=== PATIENT | female | born 1995 | race Caucasian/White ===

== ENCOUNTER 2022-09-28 09:48 | Outpatient (REF) | payer OTHER, SELFPAY ==
[2022-09-28 11:14] LABS: MANUAL DIFF FLAG NO
[2022-09-28 11:46] LABS: Basophils Percent Auto 0.9 % (0-2); Eosinophils Absolute Auto 0.5 X10*3/uL (0.0-0.4); Eosinophils Percent Auto 10.2 % (0-4); Hematocrit 36.9 % (37.0-47.0); Hemoglobin 11.3 g/dl (12.0-16.0); Imm Gran Abs Auto 0.01 X10*3/uL (0.00-0.03); Imm Gran Pct Auto 0.2 % (0.0-0.4); Lymphocytes Absolute Auto 1.9 X10*3/uL (1.2-4.9); Lymphocytes Percent Auto 40.6 % (20-40); Mean Corpuscular HGB Conc 30.6 g/dl (31.0-35.0); Mean Corpuscular Hemoglobin 24.8 pg (27.0-33.0); Mean Corpuscular Volume 80.9 fL (80.0-98.0); Mean Platelet Volume 11.1 fL (9.4-12.3); Monocytes Absolute Auto 0.3 X10*3/uL (0.1-1.2); Monocytes Percent Auto 7.4 % (2-11); Neutrophils Absolute Auto 1.9 x10*3/uL (2.0-8.3); Neutrophils Percent Auto 40.7 % (45-73); Platelet Count 350 X10*3/uL (160-400); Red Blood Count 4.56 X10*6/uL (4.20-5.50); Red Cell Distribution Width 15.2 % (11.0-16.0); White Blood Count 4.6 X10*3/uL (4.8-10.8)
[2022-09-28 13:18] LABS: Alanine Aminotransferase 12 U/L (0-31); Aspartate Amino Transferase 19 U/L (5-31); Blood Urea Nitrogen 10 mg/dL (9-16); Cholesterol 186 mg/dL; Estimated Glomerular Filt Rate > 60; Glucose Fasting 84 mg/dL (60-99); HDL Cholesterol 54 mg/dL; LDL Cholesterol Calculated 121 mg/dl; Triglycerides 59 mg/dL; Vitamin D 25-OH Total 15.5 ng/mL (>30)
[2022-09-28 13:25] LABS: Anion Gap 13 (12-20); Carbon Dioxide 28 mmol/L (22-29); Chloride 103 mmol/L (96-108); Potassium 4.3 mmol/L (3.3-5.1); Sodium 140 mmol/L (135-145)
== END 2022-09-28 09:49 | disposition home or self-care (01) ==
LOC: HO.HMGCLDS 09:48
PROVIDERS: PCP Internal Medicine; Visit Provider Internal Medicine
DX: Z00.01 Encounter for general adult medical examination with abnormal findings (principal); B00.1 Herpesviral vesicular dermatitis; F41.0 Panic disorder [episodic paroxysmal anxiety]
CPT/HCPCS: 36415; 80048; 80061; 82306; 84450; 84460; 85025

== ENCOUNTER → 2024-10-18 15:52 | Outpatient (REF) | payer OTHER, SELFPAY | LOC: HO.SL 15:52 | PROVIDERS: PCP Internal Medicine; Visit Provider Psychiatry & Neurology Neurology | DX: Z13.89 Encounter for screening for other disorder (principal) ==

== ENCOUNTER → 2024-10-23 20:50 | Outpatient (BNV) | payer OTHER, SELFPAY | PROVIDERS: PCP Internal Medicine; Visit Provider Psychiatry & Neurology Neurology | DX: G47.61 Periodic limb movement disorder (principal) | CPT/HCPCS: 95810 ==

== ENCOUNTER → 2024-10-23 21:00 | Outpatient (REF) | payer OTHER, SELFPAY | LOC: HO.SL 21:00 | PROVIDERS: PCP Internal Medicine; Visit Provider Nurse Practitioner Family | DX: G47.10 Hypersomnia, unspecified (principal); G47.61 Periodic limb movement disorder | CPT/HCPCS: 95810 ==

== ENCOUNTER 2024-11-08 14:12 | Outpatient (AMB) | payer OTHER, SELFPAY ==
--- NOTE | 2024-11-08 14:13 | A.OFFVIS_ITS ---
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 Allergy (Unknown, Uncoded 09/28/22 09:35) itchy mouth uncooked fruit Allergy (Unknown, Uncoded 09/28/22 09:35) itchy mouth walnuts Allergy (Unknown, Uncoded 09/28/22 09:35) itchy mouth Medication List - Last Reconciled 11/08/24 by Tressa Fisher PA-C acyclovir 5% 1 appl topical .5xday 10 days ascorbic acid (vitamin C) 100 mg PO DAILY MDD 100mg daily azithromycin 250 mg PO ONCE 10 days cholecalciferol (vitamin D3) 1,250 mcg PO QWEEK 3 months clindamycin phosphate 1% 1 appl topical BID 90 days ferrous fumarate 325 mg PO DAILY fluocinolone acetonide oil 0.01% 5 drps otic (ears) BID 14 days fluoxetine 40 mg (2 x 20 mg) PO DAILY 90 days gabapentin 100 mg PO BEDTIME MDD 100 mg PO at bedtime Do you need a note to return to daycare/school/sports/work: No HPI Comments Details: 29 year old female tele-health phone appointment was evaluated by PSG for PLMS. She complaints of trouble falling asleep, and staying asleep, she goes to sleep around midnight to 3am. She says she gets up at least 20 times during the night, and immediately goes back to sleep. She moves her legs constantly at night however doesn't notice it happens, then falls back asleep. She can hear everything that is going on when she is sleeping, and never falls asleep completely. Sometimes she gets up and goes to the bathroom. She has HOLLIE and takes fluoxetine. She denies headaches, snoring, or witnessed apneas. Denies Visual or Auditory Hallucinations, Nightmares, or abnormal sleep behaviors. She denies complaints of leg discomfort, numbness, tingling, creepy crawly sensations, or muscle spasms. She walks 1-2 hours a day daily and lives a very active lifestyle. [facility] Medical History Snoring Hypersomnia Vitamin D deficiency Microcytic hypochromic anemia History of COVID-19 Eczema of external ear Acne Panic anxiety syndrome Recurrent cold sores Surgical History No pertinent past surgical history Family History Brother Mental health disorder Mother HTN (hypertension) Asthma Social History Housing: House e-Cigarette/Vaping Use: Never Used service: No Current occupational status: employed Cognitive needs: No Hearing needs: No Vision needs: Yes Telehealth Telehealth Telehealth Platform: Telephone Location of provider rendering services: practice address Location of patient: address on file Patient Identification confirmed using: Name, : Yes Telehealth method: voice only Patient verbally consented to treatment: Yes Patient verbally consented to billing insurance company: Yes Patient informed of any privacy concerns related to visit: Yes Minutes spent on Phone/Video with Pt.: 15 Results Reviewed Results Reviewed: PS10/23/2024 RLS clinical diagnosis with PLMS Frequent Periodic Limb Movements associated with arousals were seen for a PLM index of 107/hr and- PLM Arousal index of 40/hour. No Evidence of Sleep Apnea. AHI was 0 and 02 Jarek was 94%. Labs Vit D - deficient / anemia Assessment & Plan Assessment & Plan (1) Periodic limb movements of sleep: Code(s): G47.61 - Periodic limb movement disorder Category: Medical Plan PLMS: Start Gabapentin 100mg PO at bedtime will titrate up to 200mg in 2 weeks and then up to 300mg next month 2024, as she is able to tolerate. Labs will check CBC/CMP/Ferritin /B12/ Vit D Will start Magnesium Oxide 400mg PO at bedtime and Ferrous Sulfate with Vitamin C 100mg daily. Medications: New gabapentin take one capsule daily at bedtime for PLMS. 100 mg PO BEDTIME 30 caps 3RF Primary Limb Movement Disorder MDD 100 mg PO at bedtime G47.61 - Periodic limb movement disorder ascorbic acid (vitamin C) Take one tablet daily with your Iron Supplement (Ferrous Sulfate 325mg PO) daily. 100 mg PO DAILY 30 tabs 3RF Primary Leg Movement Syndrome MDD 100mg daily G47.61 - Periodic limb movement disorder Refilled cholecalciferol (vitamin D3) 1,250 mcg PO QWEEK 3 months 13 caps 0RF ferrous fumarate 325 mg PO DAILY 90 tabs 1RF Coding Level of Care Code Tele Est Pt Level 3 (25457) Diagnoses Periodic limb movements of sleep G47.61 Time Spent (min) 15 Comment Evaluation of PLMS
[2024-11-08 14:15] VITALS: BMI 22.1
== END 2024-11-10 15:57 | disposition home or self-care (01) ==
PROVIDERS: PCP Internal Medicine; Visit Provider Physician Assistant Medical
DX: G47.61 Periodic limb movement disorder (principal)
CPT/HCPCS: 99213

== ENCOUNTER → 2024-11-08 14:12 | Outpatient (BNVA) | payer OTHER, SELFPAY | PROVIDERS: PCP Internal Medicine; Visit Provider Physician Assistant Medical ==

== ENCOUNTER 2025-06-11 12:03 | Outpatient (REF) | payer OTHER, SELFPAY ==
[2025-06-11 16:17] LABS: Hematocrit 40.0 % (37.0-47.0); Hemoglobin 13.0 g/dl (12.0-16.0); Mean Corpuscular HGB Conc 32.5 g/dl (31.0-35.0); Mean Corpuscular Hemoglobin 27.4 pg (27.0-33.0); Mean Corpuscular Volume 84.2 fL (80.0-98.0); NRBC Abs Auto 0.000 X10*3/uL (0.0-0.012); NRBC Pct Auto 0.0 /100WBC (0.0-0.2); Platelet Count 268 X10*3/uL (160-400); Red Blood Count 4.75 X10*6/uL (4.20-5.50); White Blood Count 4.9 X10*3/uL (4.8-10.8)
[2025-06-11 16:47] LABS: Alanine Aminotransferase 19 U/L (0-31); Albumin Level 4.7 g/dL (3.5-5.0); Alkaline Phosphatase 49 U/L (39-117); Anion Gap 11 (12-20); Aspartate Amino Transferase 28 U/L (5-31); Blood Urea Nitrogen 7 mg/dL (9-16); Calcium 9.4 mg/dL (8.4-10.2); Carbon Dioxide 26 mmol/L (22-29); Chloride 105 mmol/L (96-108); Cholesterol 171 mg/dL (<200); Estimated Glomerular Filt Rate > 60; HDL Cholesterol 55 mg/dL (>40); Potassium 4.3 mmol/L (3.3-5.1); Sodium 138 mmol/L (135-145); Total Protein 7.8 g/dL (6.5-8.0); Triglycerides 54 mg/dL (<150)
[2025-06-11 16:50] LABS: Ferritin 56 ng/mL (10-122)
[2025-06-11 17:03] LABS: Folate 6.6 ng/mL (> or = 4.0); Vitamin B12 392 pg/mL (200-900)
== END 2025-06-11 12:04 | disposition home or self-care (01) ==
LOC: HO.HMGCLDS 12:03
PROVIDERS: PCP Internal Medicine; Referring Provider Physician Assistant Medical; Visit Provider Internal Medicine
DX: Z00.01 Encounter for general adult medical examination with abnormal findings (principal); Z23 Encounter for immunization; F41.0 Panic disorder [episodic paroxysmal anxiety]; E55.9 Vitamin D deficiency, unspecified; D50.9 Iron deficiency anemia, unspecified; G47.61 Periodic limb movement disorder; L70.9 Acne, unspecified; Z79.899 Other long term (current) drug therapy; Z71.89 Other specified counseling; Z13.220 Encounter for screening for lipoid disorders; Z13.31 Encounter for screening for depression; Z13.39 Encounter for screening examination for other mental health and behavioral disorders
CPT/HCPCS: 36415; 80053; 80061; 82306; 82607; 82728; 82746; 85027; 90471; 90715; 96127; 99395

== ENCOUNTER 2025-06-11 12:03 | Outpatient (AMB) | payer OTHER, MEDICAID, SELFPAY ==
--- NOTE | 2025-06-11 12:14 | A.OFFPC_ITS ---
Vital Signs 06/11/25 12:15 Height 5 ft 3 in Weight 114 lb BMI 20.2 BP 98/64 Blood Pressure Location Rt brachial Position Sitting Respiration 15 Pulse 88 Pulse Source Pulse Oximeter Temp 98.5 F Temp Source Oral Pulse Oximetry (%) 97 Oxygen Delivery Method Room Air Intake Visit Reasons: PE Intake Note: Pt is here today for her PE: Is last menstrual period known: Yes Last menstrual period: 05/20/25 Allergies pollen Allergy (Unknown, Uncoded 06/11/25 12:30) seasonal some uncooked veg. Allergy (Unknown, Uncoded 06/11/25 12:30) itchy mouth uncooked fruit Allergy (Unknown, Uncoded 06/11/25 12:30) itchy mouth walnuts Allergy (Unknown, Uncoded 06/11/25 12:30) itchy mouth Medication List - Last Reconciled 06/11/25 by Sultana Cavanaugh MD clindamycin phosphate 1% 1 appl topical BID 90 days ferrous fumarate 325 mg PO DAILY fluoxetine 40 mg (2 x 20 mg) PO DAILY 90 days gabapentin 300 mg (3 x 100 mg) PO BEDTIME 3 months MDD 300mg Tobacco use date assessed: 06/11/25 Dental Screening Dental Screen Date: 06/11/25 Did you have a dental visit in the last 12 months?: No Did you have a dental problem in the last 6 months where you did not have access to dental care?: No Was dental information given to patient?: Patient has dentist [facility] Medical History Snoring Hypersomnia Vitamin D deficiency Microcytic hypochromic anemia History of COVID-19 Eczema of external ear Acne Panic anxiety syndrome Recurrent cold sores Surgical History No pertinent past surgical history Family History Brother Mental health disorder Mother HTN (hypertension) Asthma Social History Housing: House Patient Tobacco Use Status: Never used Tobacco e-Cigarette/Vaping Use: Never Used service: No Current occupational status: employed Cognitive needs: No Hearing needs: No Vision needs: Yes Female Reproductive History Menstrual Date of last menstrual period: 05/20/25 Questionnaire PHQ-9 Over the last 2 weeks, how often have you been bothered by any of the following problems? 1. Little interest or pleasure in doing things: not at all 2. Feeling down, depressed, or hopeless: not at all 3. Trouble falling or staying asleep, or sleeping too much: several days 4. Feeling tired or having little energy: not at all 5. Poor appetite or overeating: not at all 6. Feeling bad about yourself - or that you are a failure or have let yourself or your family down: not at all 7. Trouble concentrating on things, such as reading the newspaper or watching television: not at all 8. Moving or speaking so slowly that other people could have noticed. Or the opposite - being so fidgety or restless that you have been moving around a lot more than usual: not at all 9. Thoughts that you would be better off or of hurting yourself in some way: not at all Total score: 1 Depression Screening Interpretation: Negative Depression Screening Done: Yes 26488 - PHQ-9 Billing: Yes Source: Developed by Drs. Rangel Newberry, Chelsie Cortez, Curtis Candelaria and colleagues, with an educational stiven from [employer]. Thrive Questionnaire Date Thrive assessed: 06/11/25 I am a: Patient What is your living situation today?: I have a steady place to live Within the past 12 months, did the food you bought not last and you didn't have the money to get more?: Never true Within the past 12 months, did you worry whether your food would run out before you got money to buy more?: Never true Do you have trouble paying for medicines?: No Do you have trouble getting transportation to medical appointments?: No Do you have trouble paying your heating and electricity bill?: No Do you have trouble taking care of your child, family member or friend?: No Do you have trouble with day-to-day activities such as bathing, preparing meals, shopping, managing finances, etc.?: No Are you currently unemployed and looking for a job?: No Are you interested in more education?: No Please select the resources that you would like help with: None Currently or been in a relationship where the following occur: No concerns reported THRIVE Score: 0 AUDIT C Alcohol Use Questionnaire (AUDIT-C) 1. How often do you have a drink containing alcohol?: Never Total Score: 0 Score Reviewed/Action Taken: Yes HOLLIE-7 AMB Questionnaire HOLLIE-7 Date HOLLIE - 7 assessed: 06/11/25 Feeling nervous, anxious, or on edge: 0 = Not at all Not being able to stop or control worryin = Not at all Worrying too much about different things: 0 = Not at all Trouble relaxin = Not at all Being so restless that it is hard to sit still: 0 = Not at all Becoming easily annoyed or irritable: 0 = Not at all Feeling afraid as if something awful might happen: 0 = Not at all Total HOLLIE-7 score (0-4 normal; 5-9 mild; 10-14 moderate; 15-21 severe): 0 Source: Developed by Drs. Rangel Newberry, Chelsie Cortez, Curtis Candelaria and colleagues, with an educational stiven from [employer]. HOLLIE-7 Assessment Billing HOLLIE-7 Assessment Tool: HOLLIE-7 Assessment 85032 Physical exam (Primary Care) Vital Signs: Last Vital Signs Temp 98.5 F 06/11/25 12:15 Pulse 88 06/11/25 12:15 Resp 15 06/11/25 12:15 BP 98/64 06/11/25 12:15 Pulse Ox 97 06/11/25 12:15 Oxygen Delivery Method Room Air 06/11/25 12:15 BMI result Body Mass Index 20.2 Tobacco/Smoking Status: Tobacco use Status Tobacco use date assessed 06/11/25 06/11/25 12:18 Patient Tobacco Use Status Never used Tobacco 06/11/25 12:18 e-Cigarette/Vaping Use Never Used 06/11/25 12:18 PHQ-9: PHQ-9 Score PHQ-9: Total score 1 06/11/25 12:40 Depression Screening Interpretation: Negative Thrive Assessment: Date of Thrive Assessment Date Thrive assessed 06/11/25 06/11/25 12:18 Currently or been in a relationship where the following occur: No concerns reported Immunizations Boostrix Tdap 2.5 Lf unit-8 mcg-5 Lf/0.5 mL intramuscular syringe Performing Provider: Sultana Cavanaugh MD Performing Location: [facility] [place] [facility] Administered by: Hilario Osborne CMA on 06/11/25 12:47 Dose Route Admin Location Dispensed Lot Number Expiration Date NDC Machining Technician 0.5 mL IM Right Deltoid 0.5 mL [id number] 06/30/27 22580-205-62 [employer] Total Dispensed Waste 0.5 mL 0 % VIS Given Date VIS Provided VIS Publication Date 06/11/25 Single Vaccine 21 Eligibility Eligibility Date Funding Source Not [facility] Eligible 06/11/25 Private Coding Level of Care Code Est Pt Prev Care 18-39y(18014) Diagnoses Panic anxiety syndrome F41.0 Vitamin D deficiency E55.9 Microcytic hypochromic anemia D50.9 Periodic limb movements of sleep G47.61 Acne L70.9 Advance directive discussed with patient Z71.89 Annual visit for general adult medical examination with abnormal findings Z00.01 Need for Tdap vaccination Z23 Additional Codes HOLLIE-7 Assessment Billing - HOLLIE-7 Assessment Tool: HOLLIE-7 Assessment 90141 ([id number]) PHQ-9 - 49102 - PHQ-9 Billing: Yes ([id number]) Assessment & Plan Assessment & Plan (1) Panic anxiety syndrome: Code(s): F41.0 - Panic disorder [episodic paroxysmal anxiety] Category: Medical (2) Vitamin D deficiency: Code(s): E55.9 - Vitamin D deficiency, unspecified Category: Medical (3) Microcytic hypochromic anemia: Code(s): D50.9 - Iron deficiency anemia, unspecified Category: Medical (4) Periodic limb movements of sleep: Code(s): G47.61 - Periodic limb movement disorder Category: Medical (5) Acne: Code(s): L70.9 - Acne, unspecified Category: Medical (6) Advance directive discussed with patient: Code(s): Z71.89 - Other specified counseling (7) Annual visit for general adult medical examination with abnormal findings: Code(s): Z00.01 - Encounter for general adult medical examination with abnormal findings (8) Need for Tdap vaccination: Code(s): Z23 - Encounter for immunization Orders: Orders Lipid Panel Today Z13.220 - Encounter for screening for lipoid disorders TDaP Immunization Today Z23 - Encounter for immunization Medications: Refilled fluoxetine 40 mg (2 x 20 mg) PO DAILY 180 caps 3RF 90 days clindamycin phosphate 1% 1 appl topical BID 180 mL 3RF 90 days
[2025-06-11 12:15] VITALS: BP 98/64; PULSE 88; RESP 15; TEMP 36.9; O2SAT 97; BMI 20.2
== END 2025-06-11 13:03 | disposition home or self-care (01) ==
PROVIDERS: PCP Internal Medicine; Visit Provider Internal Medicine
DX: Z23 Encounter for immunization (principal)

== ENCOUNTER 2025-06-13 13:00 | Outpatient (AMB) | payer OTHER, SELFPAY ==
[2025-06-13 13:02] VITALS: BP 100/62; PULSE 83; O2SAT 98; BMI 20.2
--- NOTE | 2025-06-13 13:02 | MHC.OFFVIS ---
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 Allergy (Unknown, Uncoded 06/11/25 12:30) itchy mouth uncooked fruit Allergy (Unknown, Uncoded 06/11/25 12:30) itchy mouth walnuts Allergy (Unknown, Uncoded 06/11/25 12:30) itchy mouth Medication List - Last Reconciled 06/13/25 by Yessica Spencer MD cetirizine (Zyrtec) 5 mg PO DAILY PRN clindamycin phosphate 1% 1 appl topical BID 90 days ferrous fumarate 325 mg PO DAILY fluoxetine 40 mg (2 x 20 mg) PO DAILY 90 days gabapentin 300 mg (3 x 100 mg) PO BEDTIME 3 months MDD 300mg HPI Comments Details: 30 year old female comes for follow up. she is doing better with iron supplementation and gabapentin 200mg qhs . she is taking ferrous sulfate once a day and her ferritin is 56 now . History from initial visit-She complaints of trouble falling asleep, and staying asleep, she goes to sleep around midnight to 3am. She says she gets up at least 20 times during the night, and immediately goes back to sleep. She moves her legs constantly at night however doesn't notice it happens, then falls back asleep. She can hear everything that is going on when she is sleeping, and never falls asleep completely. Sometimes she gets up and goes to the bathroom. She has HOLLIE and takes fluoxetine. She denies headaches, snoring, or witnessed apneas. Denies Visual or Auditory Hallucinations, Nightmares, or abnormal sleep behaviors. She denies complaints of leg discomfort, numbness, tingling, creepy crawly sensations, or muscle spasms. She walks 1-2 hours a day daily and lives a very active lifestyle. COUNT INCLUDES [facility] Medical History Snoring Hypersomnia Vitamin D deficiency Microcytic hypochromic anemia History of COVID-19 Eczema of external ear Acne Panic anxiety syndrome Recurrent cold sores Surgical History No pertinent past surgical history Family History Brother Mental health disorder Mother HTN (hypertension) Asthma Social History Housing: House Patient Tobacco Use Status: Never used Tobacco e-Cigarette/Vaping Use: Never Used service: No Current occupational status: employed Cognitive needs: No Hearing needs: No Vision needs: Yes Physical Exam Vital Signs: Last Vital Signs Pulse 83 06/13/25 13:02 BP 100/62 06/13/25 13:02 Pulse Ox 98 06/13/25 13:02 Oxygen Delivery Method Room Air 06/13/25 13:02 BMI result Body Mass Index 20.2 Const General: cooperative, healthy appearing, comfortable and no acute distress Nutritional Appearance: average body habitus Orientation/consciousness: patient oriented x3 Eyes Pupils: Equal, round and reactive pupils present Neuro General: patient oriented x3, gait normal, tone normal, moves all extremities and no focal motor deficits Cranial nerves: Yes Facial sensation intact/muscles of mastication intact, Yes Equal, round and reactive pupils present, Yes Bilaterally intact EOM present, Yes Nystagmus not present, Yes Normal facial strength present, Yes Midline tongue present and Yes Ability to bilaterally elevate shoulders present Cognition (Neuro): normal cognition Gait exam (Neuro): Normal gait present Motor exam (neuro): 5/5 motor strength present throughout and Normal motor muscle tone present throughout Deep tendon reflexes (DTR's): Right triceps reflex intensity grade: 2+, Left triceps reflex intensity grade: 2+, Rt Biceps (C5, C6): 2+, Left biceps reflex intensity grade: 2+, Right brachioradialis reflex intensity grade: 2+, Left brachioradialis reflex intensity grade: 2+, Right patellar reflex intensity grade: 2+ and Left patellar reflex intensity grade: 2+ Coordination: [id number] test normal Assessment & Plan Assessment & Plan (1) Periodic limb movements of sleep: Code(s): G47.61 - Periodic limb movement disorder Category: Medical Plan PLMS: Continue Gabapentin 200mg PO at bedtime Continue Ferrous Sulfate with Vitamin C 100mg daily. Medications: Refilled gabapentin take 3 capsules at bedtime, for a total of 90 day supply of 270. 300 mg (3 x 100 mg) PO BEDTIME 270 caps 0RF Restless Legs Syndrome 3 months MDD 300mg G47.61 - Periodic limb movement disorder Coding Level of Care Code Est Pt Level 4 (27084) Diagnoses Periodic limb movements of sleep G47.61
== END 2025-06-13 14:13 | disposition home or self-care (01) ==
LOC: HO.HSMS 13:01
PROVIDERS: PCP Internal Medicine; Visit Provider Psychiatry & Neurology Neurology
DX: G47.61 Periodic limb movement disorder (principal)
CPT/HCPCS: 99214

== ENCOUNTER → 2025-06-13 13:00 | Outpatient (BNVA) | payer OTHER, SELFPAY | PROVIDERS: PCP Internal Medicine; Visit Provider Psychiatry & Neurology Neurology | DX: G47.61 Periodic limb movement disorder (principal) | CPT/HCPCS: 99212 ==

== ENCOUNTER 2025-10-17 12:57 | Outpatient (AMB) | payer OTHER, SELFPAY ==
--- NOTE | 2025-10-17 13:08 | AM.OFFVISNUR ---
Intake Visit Reasons: flu shot Allergies pollen Allergy (Unknown, Uncoded 06/11/25 12:30) seasonal some uncooked veg. Allergy (Unknown, Uncoded 06/11/25 12:30) itchy mouth uncooked fruit Allergy (Unknown, Uncoded 06/11/25 12:30) itchy mouth walnuts Allergy (Unknown, Uncoded 06/11/25 12:30) itchy mouth Office Procedures Flu Questionnaire Does the patient have a severe egg allergy?: No Does the patient have severe life threatening allergies?: No Does the patient have a fever or illness today?: No Has the patient ever had Guillain-[place] Syndrome?: No Has the patient ever had any past reaction to a flu shot?: No Immunizations Fluarix [id number] (PF) 45 mcg (15 mcg x 3)/0.5 mL IM syringe Performing Provider: Anderson Kinney MD [place] [facility] [place] [facility] Administered by: Hilario Osborne CMA on 10/17/25 13:08 Dose Route Admin Location Dispensed Lot Number Expiration Date [facility] Grease Packer 0.5 mL IM Left Deltoid 0.5 mL [id number] 04/30/26 [id number] [employer] VIS Given Date VIS Provided VIS Publication Date 10/17/25 Single Vaccine 24 Eligibility Eligibility Date Funding Source Not [facility] Eligible 10/17/25 Private Assessment & Plan Assessment & Plan Orders: Orders Influenza [id number] Immunization Today Z23 - Encounter for immunization Coding
== END 2025-10-17 13:04 | disposition home or self-care (01) ==
PROVIDERS: PCP Internal Medicine; Visit Provider Internal Medicine
DX: Z23 Encounter for immunization (principal)

== ENCOUNTER → 2025-10-17 12:57 | Outpatient (BNVA) | payer OTHER, SELFPAY | PROVIDERS: PCP Internal Medicine; Visit Provider Internal Medicine | DX: Z23 Encounter for immunization (principal) | CPT/HCPCS: 90471; 90656 ==